=== PATIENT | male | born 1930 | race Caucasian/White ===

== ENCOUNTER 2019-11-09 22:10 | Emergency (ER) | payer OTHER, SELFPAY ==
[2019-11-09] MEDS ORDERED: LIDOCAINE 1% W/EPI 1:100,000 MDV 20 ML VIAL ONE (22:57)
[2019-11-09] MEDS ORDERED: TETANUS & DIPHTHERIA TOX,ADULT 0.5 ML VIAL ONE (23:50)
--- NOTE | 2019-11-09 23:52 | ER ---
Nurse's Notes [facility] Name: Elmer Manzano Age: 89 yrs Sex: Male : 1930 Arrival Date: 11/09/2019 Time: 22:12 Bed 8 Private MD: Diagnosis: left arm laceration;Fall Presentation: 11/09 22:20 Presenting complaint: Patient states: he got up out of bed and lost his balance causing aa1 him to fall and hit his L forearm. Skin tear noted. Denies any other injuries. Transition of care: patient was not received from another setting of care. Onset of symptoms was November 09, 2019. Risk Assessment: Do you want to hurt yourself or someone else? Patient reports no desire to harm self or others. Initial Sepsis Screen: Does the patient meet any 2 criteria? No. Patient's initial sepsis screen is negative. Does the patient have a suspected source of infection? No. Patient's initial sepsis screen is negative. Care prior to arrival: None. 22:20 Method Of Arrival: Ambulatory aa1 22:20 Acuity: AISLINN 4 aa1 Historical: - Allergies: 22:38 Feldene; aa1 - Home Meds: 22:38 metoprolol tartrate 100 mg Oral tab 1 tab once daily [Active]; ramipril 10 mg Oral cap aa1 1 cap once daily [Active]; amlodipine 10 mg tab 1 tab once daily [Active]; cholecalciferol (vitamin D3) 5,000 unit oral tab daily [Active]; Pentasa 4 gm Oral daily [Active]; Multaq 400 mg oral tab 1 tab 2 times per day [Active]; ranolazine oral oral [Active]; Eliquis 2.5 mg oral tab 1 tab 2 times per day [Active]; lovastatin 40 mg Oral tab 1 tab once daily [Active]; folic acid 1 mg Oral tab 1 tab once daily [Active]; Vitamin B-12 Oral [Active]; fentanyl 12 mcg/hr Topical pt72 1 patch every 72 hours [Active]; Remicade 100 mg intravenous solr every 8 wks [Active]; - PMHx: 22:38 Crohn's; Hypertension; Atrial Fib; aa1 - PSHx: 22:38 CABG; Heart stents; Appendectomy; Bowel resection; aa1 - Immunization history:: Last tetanus immunization: < 5 years ago. - Social history:: Smoking status: Patient/guardian denies using tobacco. - Ebola Screening: : No symptoms or risks identified at this time. Screenin:22 Abuse screen: Denies threats or abuse. Denies injuries from another. Nutritional aa1 screening: No deficits noted. Tuberculosis screening: No symptoms or risk factors identified. Fall Risk Fall in past 12 months (25 points). Assessment: 22:22 General: Appears in no apparent distress. comfortable, slender, well groomed, Behavior aa1 is calm, cooperative, appropriate for age. Pain: Denies pain. Neuro: Level of Consciousness is awake, alert, obeys commands, Oriented to person, place, time, situation, Moves all extremities. Full function Gait is steady, Speech is slurred. Neuro: Denies weakness dizziness. Cardiovascular: Denies chest pain, palpitations. Respiratory: Airway is patent Respiratory effort is even, unlabored, Respiratory pattern is regular, symmetrical. GI: No signs and/or symptoms were reported involving the gastrointestinal system. : No signs and/or symptoms were reported regarding the genitourinary system. EENT: No signs and/or symptoms were reported regarding the EENT system. Derm: Skin is intact, is thin, has skin tears on left forearm Skin is pink, warm \T\ dry. Musculoskeletal: Circulation, motion, and sensation intact. Capillary refill < 3 seconds. 23:20 Reassessment: Patient appears in no apparent distress at this time. Patient and/or aa1 family updated on plan of care and expected duration. Pain level reassessed. Patient is alert, oriented x 3, equal unlabored respirations, skin warm/dry/pink. ERP at bedside for lac repair. 23:59 Reassessment: Patient appears in no apparent distress at this time. Patient is alert, aa1 oriented x 3, equal unlabored respirations, skin warm/dry/pink. Discussed d/c \T\ f/u instructions with pt \T\ spouse; denies questions or concerns at this time. Ambulatory to lobby with steady gait. Vital Signs: 22:20 BP 125 / 55; Pulse 62; Resp 18; Temp 97.1; Pulse Ox 100% on R/A; Weight 65.77 kg; aa1 Height 5 ft. 11 in. (180.34 cm); Pain 0/10; 23:20 BP 117 / 45; Pulse 67; Resp 16; Pulse Ox 100% on R/A; Pain 0/10; aa1 22:20 Body Mass Index 20.22 (65.77 kg, 180.34 cm) aa1 ED Course: 22:12 Patient arrived in ED. cf2 22:20 Arm band placed on right wrist. Patient placed in an exam room, on a stretcher. aa1 22:22 Patient has correct armband on for positive identification. Bed in low position. Call aa1 light in reach. Pulse ox on. NIBP on. Warm blanket given. 22:28 Evette Beth RN is Primary Nurse. aa1 22:28 Sidney Mednoza MD is Attending Physician. aa1 22:31 Triage completed. aa1 23:20 Assist provider with laceration repair on back of left arm that was between 2.6 to 7.5 aa1 cm using sutures. Set up tray. Performed by Sidney Mendoza MD Dressed with 4X4s, Mary, nonadherent dressing Patient tolerated well. 23:59 Patient did not have IV access during this emergency room visit. aa1 Administered Medications: 23:54 Drug: Tetanus-Diphtheria Toxoid Adult 0.5 ml {Guest Services Lead: [employer]. Exp: aa1 11/21/2021. Lot #: [id number]. } Route: IM; Site: left deltoid; 23:59 Follow up: Response: No adverse reaction aa1 Outcome: 23:51 Discharge ordered by . ps1 23:59 Discharged to home ambulatory, with significant other. aa1 23:59 Condition: good 23:59 Discharge instructions given to patient, significant other, Instructed on discharge instructions, follow up and referral plans. medication usage, wound care, Demonstrated understanding of instructions, follow-up care, medications, wound care, Prescriptions given X 1. 0105 00:00 Patient left the ED. aa1 Signatures: Evette Beth RN RN aa1 Sidney Mendoza MD MD ps1 Virgen Ramos cf2 Corrections: (The following items were deleted from the chart) 00:30 00:29 Patient left the ED. aa1 aa1
--- NOTE | 2019-11-09 23:52 | EDPHYS ---
Physician Documentation [facility] Name: Elmer Manzano Age: 89 yrs Sex: Male : 1930 Arrival Date: 11/09/2019 Time: 22:12 Bed 8 Private MD: ED Physician Sidney Mendoza HPI: 11/09 23:42 This 89 yrs old Male presents to ER via Ambulatory with complaints of Fall ps1 Injury, Laceration To Arm. 23:44 Patient is on Eliquis. States that he got up and felt dizzy and lost his balance. He ps1 did not hit his head. He has a laceration of left arm and skin tear. Pain is controlled and rated as moderate. Tetanus is not UTD. 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 . Historical: - Allergies: 22:38 Feldene; aa1 - Home Meds: 22:38 metoprolol tartrate 100 mg Oral tab 1 tab once daily [Active]; ramipril 10 mg Oral cap aa1 1 cap once daily [Active]; amlodipine 10 mg tab 1 tab once daily [Active]; cholecalciferol (vitamin D3) 5,000 unit oral tab daily [Active]; Pentasa 4 gm Oral daily [Active]; Multaq 400 mg oral tab 1 tab 2 times per day [Active]; ranolazine oral oral [Active]; Eliquis 2.5 mg oral tab 1 tab 2 times per day [Active]; lovastatin 40 mg Oral tab 1 tab once daily [Active]; folic acid 1 mg Oral tab 1 tab once daily [Active]; Vitamin B-12 Oral [Active]; fentanyl 12 mcg/hr Topical pt72 1 patch every 72 hours [Active]; Remicade 100 mg intravenous solr every 8 wks [Active]; - PMHx: 22:38 Crohn's; Hypertension; Atrial Fib; aa1 - PSHx: 22:38 CABG; Heart stents; Appendectomy; Bowel resection; aa1 - Immunization history:: Last tetanus immunization: < 5 years ago. - Social history:: Smoking status: Patient/guardian denies using tobacco. - Ebola Screening: : No symptoms or risks identified at this time. ROS: 23:44 Constitutional: Negative for fever, chills, and weight loss, Eyes: Negative for injury, ps1 pain, redness, and discharge, Cardiovascular: Negative for chest pain, palpitations, and edema, Respiratory: Negative for shortness of breath, cough, wheezing, and pleuritic chest pain, Abdomen/GI: Negative for abdominal pain, nausea, vomiting, diarrhea, and constipation, Skin: Negative for injury, rash, and discoloration, Neuro: Negative for headache, weakness, numbness, tingling, and seizure. 23:44 MS/extremity: Positive for laceration, of the back of left arm. Exam: 23:44 Constitutional: This is a well developed, well nourished patient who is awake, alert, ps1 and in no acute distress. Head/Face: Normocephalic, atraumatic. Eyes: Pupils equal round and reactive to light, extra-ocular motions intact. Lids and lashes normal. Conjunctiva and sclera are non-icteric and not injected. Chest/axilla: Normal chest wall appearance and motion. Nontender with no deformity. No lesions are appreciated. Cardiovascular: Regular rate and rhythm. No gallops, murmurs, or rubs. Normal PMI, no JVD. No pulse deficits. Respiratory: Lungs have equal breath sounds bilaterally, clear to auscultation and percussion. No rales, rhonchi or wheezes noted. No increased work of breathing, no retractions or nasal flaring. Abdomen/GI: Soft, non-tender, with normal bowel sounds. No distension or tympany. No guarding or rebound. No evidence of tenderness throughout. Neuro: Awake and alert, GCS 15, oriented to person, place, time, and situation. Cranial nerves II-XII grossly intact. Sensory grossly intact. 23:44 Musculoskeletal/extremity: Extremities: grossly normal except: noted in the back of left arm: laceration, skin tear, There is no evidence of foreign body or deformity. Vital Signs: 22:20 BP 125 / 55; Pulse 62; Resp 18; Temp 97.1; Pulse Ox 100% on R/A; Weight 65.77 kg; aa1 Height 5 ft. 11 in. (180.34 cm); Pain 0/10; 23:20 BP 117 / 45; Pulse 67; Resp 16; Pulse Ox 100% on R/A; Pain 0/10; aa1 22:20 Body Mass Index 20.22 (65.77 kg, 180.34 cm) aa1 Laceration: 23:44 Wound Repair of 12cm ( 4.7in ) subcutaneous laceration to back of left arm. Distal ps1 neuro/vascular/tendon intact. Anesthesia: Local anesthetic administered with 10 mls of 1% lidocaine w/ Epi. Wound prep: Moderate cleansing with hibiclenz by me. Skin closed with 12 5-0 Prolene using simple sutures and sterile technique. Dressed with Bacitracin, Kerlix. Patient tolerated well. MDM: 23:49 Data reviewed: vital signs, nurses notes, lab test result(s), and as a result, I will ps1 discharge patient. Counseling: I had a detailed discussion with the patient and/or guardian regarding: the historical points, exam findings, and any diagnostic results supporting the discharge/admit diagnosis, the need for outpatient follow up, to return to the emergency department if symptoms worsen or persist or if there are any questions or concerns that arise at home. Refusal of service: The patient/guardian displays adequate decision making capability and despite a detailed discussion of alternatives, benefits, risks, and consequences refuses: CT Scan. Special discussion: Based on the patient's history, exam and DX evaluation, there is no indication for emergent intervention or inpatient TX. It is understood by the patient/guardian that if the SXs persist or worsen they need to return immediately for re-evaluation. 23:51 Patient medically screened. 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 Exp: aa1 11/21/2021. Lot #: [id number]. } Route: IM; Site: left deltoid; 23:59 Follow up: Response: No adverse reaction aa1 Disposition: 11/09/19 23:51 Discharged to Home. Impression: left arm laceration, Fall. - Condition is Stable. - Discharge Instructions: Laceration Care, Adult, [id number]. - Prescriptions for Tramadol 50 mg Oral Tablet - take 1 tablet by ORAL route every 8 hours as needed; 12 tablet. - Medication Reconciliation Form, Thank You Letter, Antibiotic Education, Prescription Opioid Use form. - Follow up: Private Physician; When: 7 - 10 days; Reason: Recheck today's complaints, Continuance of care, Staple/Suture removal, Re-evaluation by your physician. Follow up: Emergency Department; When: As needed; Reason: Worsening of condition. - Problem is new. - Symptoms have improved. Signatures: Dispatcher [employer] [facility] Evette Beth RN RN aa1 Sidney Mendoza MD MD ps1 Corrections: (The following items were deleted from the chart) 23:51 23:51 11/09/2019 23:51 Discharged to Home. Impression: left arm laceration; Fall. ps1 Condition is Stable. Forms are Medication Reconciliation Form, Thank You Letter, Antibiotic Education, Prescription Opioid Use. Follow up: Private Physician; When: 7 - 10 days; Reason: Recheck today's complaints, Continuance of care, Staple/Suture removal, Re-evaluation by your physician. Follow up: Emergency Department; When: As needed; Reason: Worsening of condition. ps1 11/10 00:11 11/09 23:43 Head Brain Wo Cont+CT.RAD.BRZ ordered. [facility] EDTN 11/10 00:29 11/09 23:51 11/09/2019 23:51 Discharged to Home. Impression: left arm laceration; Fall. aa1 Condition is Stable. Forms are Medication Reconciliation Form, Thank You Letter, Antibiotic Education, Prescription Opioid Use. Follow up: Private Physician; When: 7 - 10 days; Reason: Recheck today's complaints, Continuance of care, Staple/Suture removal, Re-evaluation by your physician. Follow up: Emergency Department; When: As needed; Reason: Worsening of condition. Problem is new. Symptoms have improved. ps1
[2019-11-10 01:28] VITALS: BP 117/45; TEMP 97.1; O2SAT 100
== END 2019-11-10 00:29 | disposition home or self-care (01) ==
LOC: ER 22:10
PROC: 0JQF0ZZ Repair Left Upper Arm Subcutaneous Tissue and Fascia, Open Approach (ICD-10-PCS; principal; 2019-11-10)
DX: S41.112A Laceration without foreign body of left upper arm, initial encounter (principal); W19.XXXA Unspecified fall, initial encounter; Y93.89 Activity, other specified; Y92.9 Unspecified place or not applicable; Z23 Encounter for immunization; Z79.01 Long term (current) use of anticoagulants; Z88.8 Allergy status to other drugs, medicaments and biological substances; Z95.1 Presence of aortocoronary bypass graft; I10 Essential (primary) hypertension; I48.91 Unspecified atrial fibrillation
CPT/HCPCS: 90471; 90714; 99284

== ENCOUNTER 2020-08-08 13:56 | Emergency (ER) | payer SELFPAY ==
--- NOTE | 2020-08-08 14:35 | RAD REPORT ---
EXAM DESCRIPTION: CT - Head C Spine Mpr Wo Con - 08/08/2020 2:17 pm CLINICAL HISTORY: Head and neck injury status post fall. Head and neck pain COMPARISON: None. TECHNIQUE: Computed axial tomography of the head and cervical spine was obtained. Sagittal and coronal reconstruction was performed. All CT scans are performed using dose optimization technique as appropriate and may include automated exposure control or mA/KV adjustment according to patient size. FINDINGS: An intracranial bleed is not seen. The ventricles are normal in caliber. An extra-axial fl uid collection is not noted.Fluid within the visualized sinuses and mastoids is not seen. Calcificati ons within the parotid and vertebral arteries A cervical fracture is not visualized. No dislocation is noted. Spondylosis involves the cervical spi ne 11 millimeter soft tissue structure abuts the left aspect of the epiglottis IMPRESSION: No acute intracranial abnormality is seen. A cervical fracture is not visualized. If the patient continues to have symptoms to suggest intracra nial /spinal cord pathology then MRI would be recommended 11 millimeter soft tissue structure abuts the left aspect of the epiglottis. Direct visualization rec ommended
[2020-08-08] MEDS ORDERED: LIDOCAINE 1% MPF 5 ML VIAL ONE (14:58)
--- NOTE | 2020-08-08 15:18 | EDPHYS ---
Physician Documentation [facility] Name: Elmer Manzano Age: 89 yrs Sex: Male : 1930 Arrival Date: 08/08/2020 Time: 13:57 Bed 8 Private MD: ED Physician Phill Gutierrez HPI: 08/08 14:04 This 89 yrs old Male presents to ER via Unassigned with complaints of Fall pm1 Injury, Head Injury-Adult, Laceration To Head. 14:04 Details of fall: The patient fell from an upright position, while walking. Onset: The pm1 symptoms/episode began/occurred just prior to arrival. Associated injuries: The patient sustained injury to the head, laceration, of the top of head. Severity of symptoms: in the emergency department the symptoms have improved, bleeding stopped. The patient has not experienced similar symptoms in the past. Patient stepping from slab to the ground, difference in height about 3-4 inches. Lost his balance and fell forward hitting his head on the green garbage can. No neck pain or LOC. - N/V/D. Pain to the top of his head at location of laceration. Takes eliquis for afib history. Historical: - Allergies: 14:18 Feldene; ca1 14:18 Zithromax Z-Skip; ca1 - PMHx: 14:18 Atrial Fib; Crohn's; Hypertension; ca1 - PSHx: 14:18 CABG; Heart stents; Appendectomy; Bowel resection; ca1 - Immunization history:: Adult Immunizations up to date, Last tetanus immunization: < 5 years ago. - Social history:: Smoking status: Patient denies any tobacco usage or history of. - Immunization history: Last tetanus immunization: - up to date. ROS: 14:04 Constitutional: Negative for fever, chills, and weight loss, Neck: Negative for injury, pm1 pain, and swelling, Cardiovascular: Negative for chest pain, palpitations, and edema, Respiratory: Negative for shortness of breath, cough, wheezing, and pleuritic chest pain, Abdomen/GI: Negative for abdominal pain, nausea, vomiting, diarrhea, and constipation, Back: Negative for injury and pain, MS/Extremity: Negative for injury and deformity. 14:04 Skin: Positive for laceration(s), of the top of head. 14:04 Neuro: Positive for headache, Negative for loss of consciousness, numbness, tingling, weakness. Exam: 14:06 Constitutional: This is a well developed, well nourished patient who is awake, alert, pm1 and in no acute distress. 14:06 Neck: Trachea midline, no thyromegaly or masses palpated, and no cervical lymphadenopathy. Supple, full range of motion without nuchal rigidity, or vertebral point tenderness. No Meningismus. 14:06 Skin: Warm, dry with normal turgor. Normal color with no rashes, no lesions, and no evidence of cellulitis. MS/ Extremity: Pulses equal, no cyanosis. Neurovascular intact. Full, normal range of motion. 14:06 Head/face: Noted is no obvious of injury or deformity except a laceration(s), that is superficial, 5 cm(s), of the top of head. 14:06 Cardiovascular: Exam negative for acute changes, Rate: normal, Rhythm: regular, Pulses: no pulse deficits are appreciated. 14:06 Respiratory: Exam negative for acute changes, respiratory distress, shortness of breath. 14:06 Neuro: Orientation: is normal, Motor: is normal, moves all fours. Vital Signs: 14:00 BP 181 / 75; Pulse 66; Resp 16 S; Temp 97.9(TE); Pulse Ox 100% on R/A; Weight 63.5 kg ca1 (R); Height 6 ft. 0 in. (182.88 cm) (R); Pain 6/10; 15:00 BP 178 / 77; Pulse 67; Resp 17; Pulse Ox 99% on R/A; rb1 14:00 Body Mass Index 18.99 (63.50 kg, 182.88 cm) ca1 Kedar Coma Score: 14:03 Eye Response: spontaneous(4). Verbal Response: oriented(5). Motor Response: obeys rb1 commands(6). Total: 15. 15:00 Eye Response: spontaneous(4). Verbal Response: oriented(5). Motor Response: obeys rb1 commands(6). Total: 15. Trauma Score (Adult): 14:03 Eye Response: spontaneous(1); Verbal Response: oriented(1); Motor Response: obeys rb1 commands(2); Systolic BP: > 89 mm Hg(4); Respiratory Rate: 10 to 29 per min(4); Kedar Score: 15; Trauma Score: 12 14:30 Eye Response: spontaneous(1); Verbal Response: oriented(1); Motor Response: obeys rb1 commands(2); Systolic BP: > 89 mm Hg(4); Respiratory Rate: 10 to 29 per min(4); [place] Score: 15; Trauma Score: 12 15:00 Eye Response: spontaneous(1); Verbal Response: oriented(1); Motor Response: obeys rb1 commands(2); Systolic BP: > 89 mm Hg(4); Respiratory Rate: 10 to 29 per min(4); [place] Score: 15; Trauma Score: 12 Laceration: 15:15 Wound Repair of 5cm ( 2.0in ) subcutaneous laceration to top of head. Irregularly pm1 shaped.. Distal neuro/vascular/tendon intact. Anesthesia: Local anesthetic administered with 4 mls of 1% lidocaine. Wound prep: Extensive cleansing with hibiclenz by me, Wound irrigation with saline by me, Wound explored extensively, Copious irrigation. Skin closed with 10 4-0 Prolene using simple sutures and sterile technique. Dressed with Neosporin, 4x4's, Kerlix. Patient tolerated well. MDM: 14:00 Patient medically screened. pm1 15:15 Data reviewed: vital signs. Data interpreted: Pulse oximetry: on room air is 100 %. pm1 Interpretation: normal. Counseling: I had a detailed discussion with the patient and/or guardian regarding: the historical points, exam findings, and any diagnostic results supporting the discharge/admit diagnosis, lab results, the need for outpatient follow up, to return to the emergency department if symptoms worsen or persist or if there are any questions or concerns that arise at home. 08/08 14:03 Order name: CT Head C Spine; Complete Time: 14:39 pm1 Administered Medications: 16:03 Not Given (Patient Refused): Tetanus-Diphtheria Toxoid Adult 0.5 ml IM once [id number] Disposition: 16:07 Co-signature as Attending Physician, Phill Gutierrez MD I agree with the assessment and kdr plan of care. Disposition: 08/08/20 15:17 Discharged to Home. Impression: Laceration without foreign body of scalp, Fall on same level, unspecified. - Condition is Stable. - Discharge Instructions: Head Injury, Adult, Fall Prevention in the Home, Stitches, Adam, or Adhesive Wound Closure. - Medication Reconciliation Form, Thank You Letter, Antibiotic Education, Prescription Opioid Use form. - Follow up: Emergency Department; When: As needed; Reason: Worsening of condition. Follow up: Private Physician; When: 10 - 14 days; Reason: Recheck today's complaints, Continuance of care, Staple/Suture removal, Re-evaluation by your physician. - Problem is new. - Symptoms have improved. Signatures: Dispatcher [employer] EDMS Phill Gutierrez MD MD [facility] Sarah Bello RN RN [facility] Josué Moses NP WOOD POLE TREATER pm1 Carole Turner RN RN [facility] Dana Reyes RN RN Frandy Roblero RN jl7 Corrections: (The following items were deleted from the chart) 15:18 15:17 08/08/2020 15:17 Discharged to Home. Impression: Laceration without foreign body pm1 of scalpFall on same level, unspecified. Condition is Stable. Forms are Medication Reconciliation Form, Thank You Letter, Antibiotic Education, Prescription Opioid Use. Follow up: Emergency Department; When: As needed; Reason: Worsening of condition. Follow up: Private Physician; When: 2 - 3 days; Reason: Recheck today's complaints, Continuance of care, Re-evaluation by your physician. Problem is new. Symptoms have improved. pm1 16:06 15:18 08/08/2020 15:17 Discharged to Home. Impression: Laceration without foreign body ah of scalpFall on same level, unspecified. Condition is Stable. Discharge Instructions: Head Injury, Adult, Fall Prevention in the Home, Stitches, Benson, or Adhesive Wound Closure. Forms are Medication Reconciliation Form, Thank You Letter, Antibiotic Education, Prescription Opioid Use. Follow up: Emergency Department; When: As needed; Reason: Worsening of condition. Follow up: Private Physician; When: 10 - 14 days; Reason: Recheck today's complaints, Continuance of care, Staple/Suture removal, Re-evaluation by your physician. Problem is new. Symptoms have improved. pm1
--- NOTE | 2020-08-08 15:18 | ER ---
Nurse's Notes 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 Lac on top of head, 4-inch. Bleeding controlled. Denies LOC. Pt on Eilquis for A-fib. Coronavirus screen: Client denies travel out of the [place] in the last 14 days. At this time, the client does not indicate any symptoms associated with coronavirus-19. Ebola Screen: Patient negative for fever greater than or equal to 101.5 degrees Fahrenheit, and additional compatible Ebola Virus Disease symptoms Patient denies exposure to infectious person. Patient denies travel to an Ebola-affected area in the 21 days before illness onset. No symptoms or risks identified at this time. Initial Sepsis Screen: Does the patient meet any 2 criteria? No. Patient's initial sepsis screen is negative. Does the patient have a suspected source of infection? No. Patient's initial sepsis screen is negative. Risk Assessment: Do you want to hurt yourself or someone else? Patient reports no desire to harm self or others. Onset of symptoms was August 08, 2020. Onset of symptoms was August 08, 2020. 14:00 Acuity: AISLINN 2 ca1 14:03 Care prior to arrival: None. Mechanism of Injury: Fall from standing position. Trauma rb1 event details: Injury occurred in the [facility], Injury occurred: at home. Injury occurred: August 08, 2020 Injury occurred at: 13:30. Trauma Activation: Physician: ED Physician; Name: Brenda; Notified At: 14:00; Arrived At: 14:00 Physician: General Surgeon; Name: ; Notified At: 14:00; Arrived At: Physician: Radiology; Name: Dora; Notified At: 14:00; Arrived At: 14:05 Physician: Respiratory; Name: ; Notified At: 14:00; Arrived At: Physician: Lab; Name: ; Notified At: 14:00; Arrived At: Historical: - Allergies: 14:18 Feldene; ca1 14:18 Zithromax Z-Skip; ca1 - PMHx: 14:18 Atrial Fib; Crohn's; Hypertension; ca1 - PSHx: 14:18 CABG; Heart stents; Appendectomy; Bowel resection; ca1 - Immunization history:: Adult Immunizations up to date, Last tetanus immunization: < 5 years ago. - Social history:: Smoking status: Patient denies any tobacco usage or history of. - Immunization history: Last tetanus immunization: - up to date. Screenin:03 Abuse screen: Denies threats or abuse. Tuberculosis screening: No symptoms or risk rb1 factors identified. 14:03 Nutritional screening: No deficits noted. Fall Risk Fall in past 12 months (25 points). rb1 No secondary diagnosis (0 pts). No IV (0 pts). Ambulatory Aid- None/Bed Rest/Nurse Assist (0 pts). Gait- Normal/Bed Rest/Wheelchair (0 pts) Mental Status- Oriented to own ability (0 pts). Total Cyr Fall Scale indicates Low Risk Score (25-44 pts). Fall prevention measures have been instituted. Side Rails Up X 2 Placed close to Nursing Station 1:1 attendant Assigned to Pt. Frequent Obs/Assesments occuring As available Patient and Family Educated on Fall Prevention Program and strategies. Primary Survey: 14:03 NO uncontrolled hemorrhage observed. A: The patient is alert. Breathing/Chest: rb1 Respiratory pattern: regular, Respiratory effort: spontaneous, unlabored, Chest inspection: symmetrical rise and fall of the chest. Circulation: Skin color: pink. Disability Alert. Exposure/Environment: There is no evidence of uncontrolled external bleeding. 14:30 Reassessment Airway Airway Patent Breathing/Chest Respiratory pattern Regular rb1 Respiratory effort Spontaneous Unlabored Circulation Color [place] Disability Alert. Secondary Survey: 14:03 HEENT: Head Other Laceration noted to the top of head. Gastrointestinal: No deficits rb1 noted. : No deficits noted. Musculoskeletal: Range of motion: intact in all extremities. Assessment: 14:03 General: Appears in no apparent distress. comfortable, Behavior is calm, cooperative. rb1 Neuro: Level of Consciousness is awake, alert, obeys commands, Oriented to person, place, time, situation. Cardiovascular: Patient's skin is warm and dry. Respiratory: Airway is patent Respiratory effort is even, unlabored, Respiratory pattern is regular, symmetrical. GI: No signs and/or symptoms were reported involving the gastrointestinal system. : No signs and/or symptoms were reported regarding the genitourinary system. Derm: Wound noted top of head Wound is Approximate 4 inch laceration on top of his head, bleeding controlled. Musculoskeletal: Range of motion: intact in all extremities. 15:00 Reassessment: Patient appears in no apparent distress at this time. Patient and/or rb1 family updated on plan of care and expected duration. Pain level reassessed. Patient is alert, oriented x 3, equal unlabored respirations, skin warm/dry/pink. 15:33 Reassessment: Patient appears in no apparent distress at this time. No changes from rb1 previously documented assessment. at the bedside. Vital Signs: 14:00 BP 181 / 75; Pulse 66; Resp 16 S; Temp 97.9(TE); Pulse Ox 100% on R/A; Weight 63.5 kg ca1 (R); Height 6 ft. 0 in. (182.88 cm) (R); Pain 6/10; 15:00 BP 178 / 77; Pulse 67; Resp 17; Pulse Ox 99% on R/A; rb1 14:00 Body Mass Index 18.99 (63.50 kg, 182.88 cm) ca1 Kedar Coma Score: 14:03 Eye Response: spontaneous(4). Verbal Response: oriented(5). Motor Response: obeys rb1 commands(6). Total: 15. 15:00 Eye Response: spontaneous(4). Verbal Response: oriented(5). Motor Response: obeys rb1 commands(6). Total: 15. Trauma Score (Adult): 14:03 Eye Response: spontaneous(1); Verbal Response: oriented(1); Motor Response: obeys rb1 commands(2); Systolic BP: > 89 mm Hg(4); Respiratory Rate: 10 to 29 per min(4); Kdear Score: 15; Trauma Score: 12 14:30 Eye Response: spontaneous(1); Verbal Response: oriented(1); Motor Response: obeys rb1 commands(2); Systolic BP: > 89 mm Hg(4); Respiratory Rate: 10 to 29 per min(4); Auburn Score: 15; Trauma Score: 12 15:00 Eye Response: spontaneous(1); Verbal Response: oriented(1); Motor Response: obeys rb1 commands(2); Systolic BP: > 89 mm Hg(4); Respiratory Rate: 10 to 29 per min(4); Kedar Score: 15; Trauma Score: 12 ED Course: 13:57 Patient arrived in ED. ag5 14:00 Josué Moses NP is PHCP. pm1 14:00 Phill Gutierrez MD is Attending Physician. pm1 14:03 Patient has correct armband on for positive identification. Bed in low position. Call rb1 light in reach. Side rails up X 1. 14:03 Patient maintains SpO2 saturation greater than 95% on room air. rb1 14:03 Thermoregulation: warm blanket given to patient. rb1 14:10 Sarah Bello, RN is Primary Nurse. rb1 14:16 CT Head C Spine In Process Unspecified. EDMS 14:17 Triage completed. ca1 14:18 Arm band placed on right wrist. ca1 16:06 No provider procedures requiring assistance completed. Patient did not have IV access rb1 during this emergency room visit. Administered Medications: 16:03 Not Given (Patient Refused): Tetanus-Diphtheria Toxoid Adult 0.5 ml IM once jl7 Outcome: 15:17 Discharge ordered by . pm1 16:06 Patient left the ED. 16:06 Discharged to home ambulatory, with family. rb1 16:06 Condition: stable 16:06 Discharge instructions given to pt. left before signing discharge papers. I took another pt. to ICU and when I returned this pt. had already left. Signatures: Dispatcher [employer] EDTX Sarah Bello, RN RN rb1 Josué Moses NP FARM MANAGER pm1 Carole Turner RN RN [facility] Lauren Mcleod ag5 Dana Reyes RN RN Frandy Lopez RN jl7 Corrections: (The following items were deleted from the chart) 14:17 14:00 Method Of Arrival: Ambulatory [facility] ca1
[2020-08-08 16:13] VITALS: BP 181/75; TEMP 97.9; O2SAT 100
--- OUTSIDE RECORDS SUMMARY | 2020-08-12 23:18 | XMS REPORT | Clinical Summary ---
:[address] 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 tablet mesalamine (PENTASA) Take 1,333 mg by 0 Active 250 mg CR capsule mouth 3 (three) times daily 3 tabs in AM, 3 tabs in afternoon, and 2 tabs in PM. ramipril (ALTACE) 10 Take 10 mg by mouth 0 Active MG capsule daily. apixaban (ELIQUIS) 5 Take 2.5 mg by mouth 0 Active mg Tab tablet 2 (two) times daily . cholecalciferol, Take 5,000 Units by 0 Active vitamin D3, 5,000 mouth daily. unit Tab INFLIXIMAB (REMICADE Inject intravenously 0 Active IV) once every [address] 0.4 mg under 0 Active (NITROSTAT) 0.4 MG the tongue every 5 SL tablet (five) minutes as needed for Chest pain Put 1 pill under tongue every 5min as needed for chest pain.No more than 3 doses in 15min.Call 911 if pain is unrelieved 5min after 1st dose . TURM/GING/WALE/YUC/WI Take by mouth daily 0 Active L/ALETHEA/HOR . (TUMERSAID ORAL) cranberry fruit Take by mouth daily 0 Active concentrate . (CRANBERRY) 450 mg Tab cyanocobalamin Inject 1,000 mcg 0 Active (VITAMIN B-12) 1,000 intramuscularly mcg/mL injection every 30 (thirty) days . clopidogrel (PLAVIX) Take 75 mg by mouth 0 Active 75 mg tablet daily. dronedarone (MULTAQ) Take 0.5 tablets 0 01/16/2018 Active 400 mg tablet (200 mg total) by mouth 2 (two) times daily with breakfast and dinner. amLODIPine (NORVASC) Take 1 tablet (5 mg 30 tablet 2 8 5 MG tablet total) by mouth 9 daily. 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 Angina pectoris 07/02/2016 Symptomatic bradycardia 02/26/2015 Syncope 01/19/2015 Ventricular tachycardia 01/19/2015 New onset atrial fibrillation 06/25/2013 Hypertension CAD (coronary artery disease) Overview: ACB X 3 Atrial fibrillation Family History Medical History Relation Name Comments defects Daughter brain damage Heart disease Father of heart di sease Hypertension Father Arthritis Mother Hypertension Mother Vision loss Mother macular degenera tion Drug abuse Other grandson Learning disabilities Other grandson adhd COPD Paternal Aunt from copd Heart disease Paternal Aunt Stroke Paternal Grandfather Stroke Paternal Grandmother Cancer Paternal Uncle Heart disease Paternal Uncle Relation Name Status Comments Daughter Father Mother Other grandson Alive Paternal Aunt Paternal Grandfather Paternal Grandmother Paternal Uncle Social History Tobacco Use Types Packs/Day Years Used Date Never Smoker Smokeless Tobacco: Never Used Comments: pt discharged soon after admis johnson,unable to obtain history Alcohol Use Drinks/Week oz/Week Comments Yes 7 Glasses of wine 4.2 Glass of wine a day. Sex Assigned at Date Recorded Not on file Job Start Date Occupation Industry Not on file Not on file Not on file Travel History Travel Start Travel End No recent travel history available. 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 Device Shelf Model / Identifier Expiration Serial / Lot Date Angio-Seal Vip Graft/Pat [employer] [id number] / Implanted: Qty: 1 on 07/04/2016 by Logan San MD [facility] / [id number] Prom[employer] Premier Stents[employer] 017 [id number] / Implanted: Qty: 1 on 07/04/2016 by Logan San MD [facility] / [id number] - 52cm [employer] 12/02/2016 5076 - 52CM / Implanted: Qty: 1 on 02/26/2015 [id number] / [id number] - 45cm [employer] 11/26/2016 5076 - 45CM / Implanted: Qty: 1 on 02/26/2015 [id number] / Advisa Dr Lyles Surearden/[id number] [employer] [id number] / Implanted: Qty: 1 on 02/26/2015 [id number] / Procedures Procedure Name Priority Date/Time Associated Diagnosis Comme nts ECHOCARDIOGRAM REPORT - 02/03/2020 9:51 AM SCAN CDT after 08/12/2019 Results ECHOCARDIOGRAM REPORT - SCAN (02/03/2020 9:51 AM CDT) Narrative Performed At This result has an attachment that is no t available. after 08/12/2019 Insurance Payer Benefit Plan / Group Subscriber ID Type Phone A ddress MEDICARE MEDICARE A B xxxxxxxxxxx Medicare [facility] INDEMNITY xxxxxxxxx CARE COMMERCIAL Advance Directives Patient has advance care planning documents, and code status on file. For more information, please contact:[address] [phone] Code Status Date Activated Date Inactivated Comments Full Code 09/18/2018 4:53 PM This code status was determined by: Patient Full Code 09/14/2018 5:18 PM 09/18/2018 1:12 PM This code status was determined by: Patient Full Code 09/14/2018 12:13 PM 09/14/2018 12:56 PM This code status was determined by: Patient Full Code 09/14/2018 11:28 AM 09/14/2018 12:13 PM This code status was determined by: Patient Full Code 01/14/2018 8:09 AM 01/16/2018 4:30 PM This code status was determined by: Patient
--- OUTSIDE RECORDS SUMMARY | 2020-08-12 23:18 | XMS REPORT | Clinical Summary ---
:1930 Author Organization [facility] Address [address] [place] [address] Care Team Providers Name Role Phone Areli Cates MD Primary Care Provider Allergies Active Allergy Reactions Severity Noted Date Comments Azithromycin Anxiety Low 07/24/2016 Hydrocodone-Acetaminophen Anxiety Low 07/24/2016 Medications Medication Sig Dispensed Refills Start Date End Date Status amLODIPine (NORVASC) 10 Take 10 mg by 0 Active MG tablet mouth 2 (two) times a day. apixaban (ELIQUIS) 5 mg Take 2.5 mg by 0 Active tablet mouth. cholecalciferol, Take 5,000 Units 0 Active vitamin D3, 5,000 unit by mouth. tablet inFLIXimab (REMICADE) Infuse into a 0 Active 100 mg injection venous catheter. metoprolol tartrate Take 50 mg by 0 Active (LOPRESSOR) 50 MG mouth. tablet ramipril (ALTACE) 10 MG Take 10 mg by 0 Active capsule mouth. ranolazine (RANEXA) 500 Take 1,000 mg by 0 Active MG 12 hr ER tablet mouth. dronedarone (MULTAQ) Take 400 mg by 0 Active 400 mg tablet mouth. mesalamine (PENTASA) Take 1,000 mg by 0 Active 250 mg CR capsule mouth. folic acid (FOLVITE) 1 Take 1 mg by 0 Active MG tablet mouth daily. vitamin B complex (B Take by mouth. 0 Active COMPLEX-VITAMIN B12 ORAL) lovastatin (MEVACOR) 40 Take 40 mg by 0 Active MG tablet mouth nightly. clopidogrel (PLAVIX) 75 Take 75 mg by 0 Active mg tablet mouth daily. Active Problems Problem Noted Date Foot sprain, left, initial encounter 11/16/2018 Surgical History Surgery Date Site/Laterality Comments COLON SURGERY TONSILLECTOMY KNEE SURGERY Left EYE SURGERY APPENDECTOMY CARDIAC SURGERY "maybe total of 7, last one in August 2016" JOINT REPLACEMENT STENT CARDIAC PACEMAKER PLACEMENT Medical History Medical History Date Comments Atrial fibrillation (HCC) Hypertension Crohn disease (HCC) Coronary artery disease Neuropathy Hyperlipidemia Arthritis Heart disease Family History Medical History Relation Name Comments Heart disease Father Hypertension Mother Relation Name Status Comments Father Mother Social History Tobacco Use Types Packs/Day Years Used Date Never Smoker Smokeless Tobacco: Never Used Alcohol Use Drinks/Week oz/Week Comments No 1 Cans of beer 1.0 Sex Assigned at Date Recorded Not on file Last Filed Vital Signs Not on file Plan of Treatment Health Maintenance Due Date Last Done Comments SHINGLES VACCINES (#1) 1980 INFLUENZA VACCINE 06/06/2020 65+ PNEUMOCOCCAL VACCINE Completed 09/16/2015 Results Not on fileafter 08/12/2019 Insurance Payer Benefit Plan / Subscriber ID Effective Dates Phone Addre ss Type Group MEDICARE MEDICARE PART A [id number] 1995-[place] Medicare AND B t [facility] [id number] 2015-Present Indemnity INDEMNITY Advance Directives For more information, please contact: [phone] Type Date Recorded 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
--- OUTSIDE RECORDS SUMMARY | 2020-08-12 23:19 | XMS REPORT | Continuity of Care Document ---
:1930 Author Organization [facility] t Address [address] [place] [address] Care Team Providers Name Role Phone Areli Cates MD Primary Care Physician Patricia ARIAS CIgnacio Attending Clinician JONA BLANCO Attending Clinician Unavailable TRISTIAN ARZATE Attending Clinician Unavailable ARTURO Attending Clinician Unavailable ELMIRA RAYMUNDO Attending Clinician Unavailable AZIZA MA Admitting Clinician Unavailable TRISTIAN ARZATE Admitting Clinician Unavailable PARESH EVANS Admitting Clinician Unavailable ELMIRA RAYMUNDO Admitting Clinician Unavailable Problems Condition Condition Condition Status Onset Resolution Last Treating Co mments Source Name Details Category Date Date Treatment Clinician Date Foot Foot Disease Active [place] sprain, sprain, 1-11 [facility] left, left, 00:00: st initial initial 00 encounter encounter Chest Chest Disease Active 2017-[address] [facility] pain, pain, 1-13 [facility] unspecifie unspecifie 00:00: Me dical d type d type 00 Center Atrial Atrial Disease Active 2017-[address] [facility] flutter flutter 1-09 [facility] Medical 00 Center Other Other Disease Active [facility] chest pain chest pain 3-11 [facility] - 00:00: Medical 00 Center Hx of CABG Hx of CABG Disease Active [facility] 8[facility]30 [facility] Medical 00 Center 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 8-27 [facility] - 00:00: Medical 00 [place] Symptomati Symptomati Disease Active [facility] c c 4-23 [facility] - bradycardi bradycardi 00:00: Me dical a a 00 Center Syncope Syncope Disease Active [facility] 3-16 [facility] - 00:[facility]: Medical 00 Center 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 St fibrillati fibrillati [facility] [facility] - on [facility] Allergies, Adverse Reactions, Alerts Allergy Allergy Status Severity Reaction(s) Onset Inactive Treating Comm ents Source Name Type Date Date Clinician Azithrom Propensi Active Anxiety [place] ycin ty to 07-24 [facility] adverse 00:00: st reaction 00 s to drug Hydrocod Propensi Active Anxiety [place] one-Acet ty to 07-24 [facility] aminophe adverse 00:00: st n reaction 00 s to drug Piroxica Propensi Active Rash When goes [facility] m ty to 6-10 [place] [facility] - adverse 00:00: gets rash Medica l reaction 00 Center s Hydrocod Propensi Active Other (See Nervous, [facility] one-Acet ty to Comments) 6-10 "freak [facility] - aminophe adverse 00:00: out" Medical n reaction 00 Center s Azithrom Propensi Active Other (See Severe [facility] ycin ty to Comments) 6-10 digestive Luke s - adverse 00:00: pain Medical reaction 00 Center s Family History Family Member Diagnosis Comments Start Date Stop Date Source Natural father Heart disease [place] Natural father Heart disease [facility] Natural father Hypertension [facility] Natural mother Hypertension [facility] Natural mother Arthritis [facility] Natural mother Hypertension [facility] Natural mother Vision loss [facility] Natural daughter defects [facility] Other Drug abuse [facility] Other Learning [facility] disabilities Medical Cent er Paternal aunt COPD [facility] Paternal aunt Heart disease [facility] P[facility] r Paternal uncle Cancer [facility] Paternal uncle Heart disease [facility] Social History Social Habit Start Date Stop Date Quantity Comments Source Sex Assigned At [facility] Tobacco use and 2019-04-25 2019-04-25 Never used [facility] ethodist exposure 00:00:00 00:00:00 Alcohol intake 2019-04-25 2019-04-25 Current [facility] thodist 00:00:00 00:00:00 non-drinker of alcohol (finding) Alcohol Comment 2018-09-18 2018-09-18 Glass of wine a [facility] - 00:00:00 00:00:00 day. [facility] Tobacco Comment 2013-06-25 2013-06-[address] [facility] - 00:00:00 00:00:00 after [facility] admission,unable to obtain history Smoking Status Start Date Stop Date Source Never smoker [facility] Medications Ordered Filled Start Stop Current Ordering Indication Dosage Frequency Signature Comments Components Source Medication Medication Date Date Medication? Clinician (SIG) Name Name amLODIPine Yes 10mg Q.5D Take 10 mg [place] (NORVASC) 1-11 by mouth 2 Meth kendrick 10 MG 14:52: (two) st tablet 21 times a day. amLODIPine 2017-11 2019- No 5mg QD Take [address] (NORVASC) 5 1-10 11-10 tablet (5 [facility] - MG tablet 00:00: 23:59 mg total) Me dical 00 :00 by mouth Center daily. TURM/GING/B 2017-11 Yes QD Take by [facility] OS/YUC/ANGELIA/ 11-14 mouth [facility] - ALETHEA/HOR 13:19: daily . Medica l (TUMERSAID 28 [place] ORAL) mesalamine 2017-11 Yes 1333mg [id number] Take 1,[address] [facility] (PENTASA) 11-14 [id number] mg by Lisa es - 250 mg CR 13:18: 3D mouth 3 Medic al capsule 38 (three) Center times daily 3 tabs in AM, 3 tabs in afternoon, and 2 tabs in PM. cranberry 2017-11 Yes QD Take by [facility] t fruit 11-14 mouth [facility] - concentrate 13:18: daily . Med ical (CRANBERRY) 38 Center 450 mg Tab cyanocobala 2017-11 Yes 1000ug Inject [facility] min 1-09 1,000 mcg [facility] - (VITAMIN 13:18: intramuscu Med ical B-12) 1,000 38 larly Center mcg/mL every 30 injection (thirty) days . apixaban Yes 2.5mg Take 2.5 [place] (ELIQUIS) 5 5-31 mg by [facility] mg tablet 15:24: mouth. st 57 cholecalcif 2018 Yes 5000U Take 5,000 [place], 5-31 Units by [facility] vitamin D3, 15:24: mouth. st 5,000 unit 57 tablet inFLIXimab 0 Yes Infuse [place] (REMICADE) 5 into a [facility] 100 mg 15:24: venous st injection 57 catheter. metoprolol Yes 50mg Take 50 mg [place] tartrate 5 by mouth. Method i (LOPRESSOR) 15:24: st 50 MG 57 tablet ramipril 0 Yes 10mg Take 10 mg Cristóbal ston (ALTACE) 10 04-05 by mouth. Met hodi MG capsule 15:24: st 57 ranolazine 2018-0 Yes 1000mg Take 1,000 [place] (RANEXA) 5-31 mg by [facility] 500 MG 12 15:24: mouth. st hr ER 57 tablet dronedarone 20180 Yes 400mg Take 400 [place] (MULTAQ) 5-31 mg by [facility] 400 mg 15:24: mouth. st tablet 57 mesalamine 20180 Yes 1000mg Take 1,000 [place] (PENTASA) 5-31 mg by [facility]i 250 mg CR 15:24: mouth. st capsule 57 folic acid 2018-0 Yes 1mg QD Take 1 mg [place] (FOLVITE) 1 - by mouth Meth kendirck MG tablet 15:24: daily. st 57 vitamin B 2018-0 Yes Take by [place] complex (B 5-31 mouth. [facility] COMPLEX-VIT 15:24: st LATHAM B12 56 ORAL) lovastatin 2017-0 Yes 40mg QD Take 40 mg [place] (MEVACOR) 5-31 by mouth Method i 40 MG 15:24: nightly. st tablet 56 clopidogrel 2018- Yes 75mg QD Take 75 mg [place] (PLAVIX) 75 5-31 by mouth Meth kendrick mg tablet 15:24: daily. st 56 dronedarone 0 Yes 200mg Take 0.[address] (MULTAQ) 3-13 tablets [facility] - 400 mg 00:00: (200 mg Medical tablet 00 total) by Center mouth 2 (two) times daily with breakfast and dinner. clopidogrel Yes 75mg QD Take [address] (PLAVIX) 75 3-11 by mouth Luke s - mg tablet 15:33: daily. Medica l 58 Center nitroglycer Yes .4mg Place 0.[address] in 3-11 mg under [facility] - (NITROSTAT) 03:07: the tongue Medical 0.4 MG SL 29 every 5 Center tablet (five) minutes as needed for Chest pain Put 1 pill under tongue every 5min as needed for chest pain.No more than 3 doses in 15min.Call 911 if pain is unrelieved 5min after 1st dose . INFLIXIMAB Yes Inject [facility] t (REMICADE 4-12 intravenou Luke s - IV) 15:32: sly once Medical 43 every 8 Center weeks . apixaban Yes 2.5mg Q.5D Take 2.[address] (ELIQUIS) 5 8-28 mg by [facility] - mg Tab 00:59: mouth 2 Medical tablet 51 (two) Center times daily . cholecalcif Yes 5000U QD Take 5,[address] khushi, 8-27 Units by [facility]ukes - vitamin D3, 22:15: mouth Medic al 5,000 unit 57 daily. Center Tab ramipril Yes 10mg QD Take [address] (ALTACE) 10 3-16 by mouth Luke s - MG capsule 16:07: daily. Medic al 21 Center metoprolol 0 Yes 50mg Q.5D Take [address] (LOPRESSOR) 6-10 by mouth 2 [place] [facility] - 50 MG 20:41: (two) Medical tablet 14 times Center daily. Procedures Procedure Date / Time Performing Clinician Source Performed ECHOCARDIOGRAM REPORT - 2020-02-03 09:51:33 Provider, Default [facility] Plan of Care Planned Activity Planned Date Details Comments Source Future Scheduled 2020-06-06 INFLUENZA VACCINE [place] [facility] 00:00:00 [code = INFLUENZA VACCINE] Future Scheduled 1980 SHINGLES VACCINES [place] [facility] 00:00:00 (#1) [code = SHINGLES VACCINES (#1)] Encounters Start End Encounter Admission Attending Care Care Encounter Source Date/Time Date/Time Type Type Clinicians Facility Department ID 2019-08-30 2019-08-30 Office [place] [facility] [id number] 10:19:41 11:53:05 Visit , Kaden AMBULATOR [id number] C. Y [id number] 300 2019-07-17 2019-07-17 Office [place] [facility] [id number] 09:35:50 09:45:50 Visit , Kaden AMBULATOR [id number] C. Y [id number] 300 2019-06-10 2019-06-10 Office [place] [facility] [id number] 16:06:01 16:21:01 Visit , Kaden AMBULATOR [id number] C. Y [id number] 300 Results Test Description Test Time Test Comments Results Result Comments Source TROPONIN I 2018-09-19 09:44:00 Test Item Value Reference Range Interpretation Comme nts TROPONIN I (BEAKER) (test code = 397) 0.10 ng/mL 0.00-0.03 H BASIC METABOLIC [id number] 08:36:00 Test Item Value Reference Range Interpretation Comments SODIUM (BEAKER) 139 meq/L 136-145 (test code = 381) POTASSIUM (BEAKER) 4.6 meq/L 3.5-5.1 (test code = 379) CHLORIDE (BEAKER) 112 meq/L 98-107 H (test code = 382) CO2 (BEAKER) (test 22 meq/L 22-29 code = 355) BLOOD UREA NITROGEN 31 mg/dL 7-21 H (BEAKER) (test code = 354) CREATININE (BEAKER) 1.38 mg/dL 0.57-1.25 H (test code = 358) GLUCOSE RANDOM 87 mg/dL 70-105 (BEAKER) (test code = 652) CALCIUM (BEAKER) 9.0 mg/dL 8.4-10.2 (test code = 697) EGFR (BEAKER) (test 49 mL/min/1.73 ESTIMA BUDDY GFR IS code = 1092) sq m NOT ACCURATE CREATININE CLEARANCE IN PREDICTING GLOMERULAR FILTRATION RATE . ESTIMATED GFR I S NOT APPLICABLE FOR DIALYSIS PATIEN TS. CBC W/PLT COUNT & AUTO [id number] 08:23:00 Test Item Value Reference Range Interpretation Comments WHITE BLOOD CELL COUNT (BEAKER) 7.9 K/ L 3.5-10.5 (test code = 775) RED BLOOD CELL COUNT (BEAKER) 3.54 M/ L 4.63-6.08 L (test code = 761) HEMOGLOBIN (BEAKER) (test code = 10.7 GM/DL 13.7-17.5 L 410) HEMATOCRIT (BEAKER) (test code = 33.8 % 40.1-51.0 L 411) MEAN CORPUSCULAR VOLUME (BEAKER) 95.5 fL 79.0-92.2 H (test code = 753) MEAN CORPUSCULAR HEMOGLOBIN 30.2 pg 25.7-32.2 (BEAKER) (test code = 751) MEAN CORPUSCULAR HEMOGLOBIN CONC 31.7 GM/DL 32.3-36.5 L (BEAKER) (test code = 752) RED CELL DISTRIBUTION WIDTH 14.9 % 11.6-14.4 H (BEAKER) (test code = 412) PLATELET COUNT (BEAKER) (test 215 K/CU MM 150-450 code = 756) MEAN PLATELET VOLUME (BEAKER) 10.6 fL 9.4-12.4 (test code = 754) NUCLEATED RED BLOOD CELLS 0 /100 WBC 0-0 (BEAKER) (test code = 413) NEUTROPHILS RELATIVE PERCENT 48 % (BEAKER) (test code = 429) LYMPHOCYTES RELATIVE PERCENT 37 % (BEAKER) (test code = 430) MONOCYTES RELATIVE PERCENT 12 % (BEAKER) (test code = 431) EOSINOPHILS RELATIVE PERCENT 3 % (BEAKER) (test code = 432) BASOPHILS RELATIVE PERCENT 1 % (BEAKER) (test code = 437) NEUTROPHILS ABSOLUTE COUNT 3.80 K/ L 1.78-5.38 (BEAKER) (test code = 670) LYMPHOCYTES ABSOLUTE COUNT 2.89 K/ L 1.32-3.57 (BEAKER) (test code = 414) MONOCYTES ABSOLUTE COUNT (BEAKER) 0.91 K/ L 0.30-0.82 H (test code = 415) EOSINOPHILS ABSOLUTE COUNT 0.22 K/ L 0.04-0.54 (BEAKER) (test code = 416) BASOPHILS ABSOLUTE COUNT (BEAKER) 0.05 K/ L 0.01-0.08 (test code = 417) IMMATURE GRANULOCYTES-RELATIVE 0 % 0-1 PERCENT (BEAKER) (test code = 2801) TROPONIN [id number] 00:58:00 Test Item Value Reference Range Interpretation Comments TROPONIN I (BEAKER) (test code = 0.11 ng/mL 0.00-0.03 H 397) TROPONIN [id number] 16:56:00 Test Item Value Reference Range Interpretation Comments TROPONIN I (BEAKER) (test code = 0.13 ng/mL 0.00-0.03 H 397) RAD, CHEST, 1 VIEW, NON [id number] 14:45:00Reason for exam:->CHEST PAINShould this be performed at the bedside?->YesFINAL REPORT TECHNIQUE: Frontal chest radiograph dated 09/18/2018. CLINICAL H ISTORY: Chest pain COMPARISON STUDY: Chest radiograph dated 11/26/2017 IMPRESSION:Left-sided defibrillator and cardiac monitoring device are unchanged. Lungs are clear. No pleural effusion or pneumothorax. Cardiomediastinal silhouette is normal in size. No pulmonary edema. Midline sternotomy wires are i ntact and well aligned. Signed: Gonzalo Sineport Verified Date/Time: 09/18/2018 14:45:27Reading Location: [facility] Radiology Reading Room CREATINE KINASE (CK), TOTAL AND [id number] 14:31:00 Test Item Value Reference Range Interpretation Comments CREATINE KINASE TOTAL (BEAKER) 98 U/L 29-200 (test code = 380) CREATINE KINASE-MB (BEAKER) (test 2.3 ng/mL 0.0-6.6 code = 750) CREATINE KINASE-MB INDEX (BEAKER) 2.3 % (test code = 395) CK-MB Reference Range:<6.7 Normal6.7-10.0 Borderline>10.0 AbnormalB-TYPE NATRIURETIC FACTOR (BNP)2018-09-18 14:31:00 Test Item Value Reference Range Interpretation Comments B-TYPE NATRIURETIC PEPTIDE (BEAKER) 303 pg/mL 0-100 H (test code = 700) BASIC METABOLIC [id number] 14:24:00 Test Item Value Reference Range Interpretation Comments SODIUM (BEAKER) 137 meq/L 136-145 (test code = 381) POTASSIUM (BEAKER) 4.4 meq/L 3.5-5.1 (test code = 379) CHLORIDE (BEAKER) 108 meq/L 98-107 H (test code = 382) CO2 (BEAKER) (test 21 meq/L 22-29 L code = 355) BLOOD UREA NITROGEN 33 mg/dL 7-21 H (BEAKER) (test code = 354) CREATININE (BEAKER) 1.43 mg/dL 0.57-1.25 H (test code = 358) GLUCOSE RANDOM 138 mg/dL 70-105 H (BEAKER) (test code = 652) CALCIUM (BEAKER) 9.4 mg/dL 8.4-10.2 (test code = 697) EGFR (BEAKER) (test 47 mL/min/1.73 ESTIMA BUDDY GFR IS code = 1092) sq m NOT ACCURATE CREATININE CLEARANCE IN PREDICTING GLOMERULAR FILTRATION RATE . ESTIMATED GFR I S NOT APPLICABLE FOR DIALYSIS PATIEN TS. [id number] 14:12:00 Test Item Value Reference Range Interpretation Comments PROTIME (BEAKER) (test code = 16.4 seconds 11.7-14.7 H 759) INR (BEAKER) (test code = 370) 1.3 <=5.9 PARTIAL THROMBOPLASTIN TIME 37.9 seconds 22.5-36.0 H (BEAKER) (test code = 760) RECOMMENDED COUMADIN/WARFARIN INR THERAPY RANGESSTANDARD DOSE: 2.0 - 3.0 Includes: PROPHYLAXIS forvenous thrombosis, systemic embolization; TREATMENT for venous thrombosis and/or pulmonary embolus.HIGH RISK: Target INR is 2.5-3.5 for patients with mechanical heart valves.CBC W/PLT COUNT & AUTO DIFFERENTIAL 2018-09-18 14:05:00 Test Item Value Reference Range Interpretation Comments WHITE BLOOD CELL COUNT (BEAKER) 8.3 K/ L 3.5-10.5 (test code = 775) RED BLOOD CELL COUNT (BEAKER) 3.55 M/ L 4.63-6.08 L (test code = 761) HEMOGLOBIN (BEAKER) (test code = 10.8 GM/DL 13.7-17.5 L 410) HEMATOCRIT (BEAKER) (test code = 34.1 % 40.1-51.0 L 411) MEAN CORPUSCULAR VOLUME (BEAKER) 96.1 fL 79.0-92.2 H (test code = 753) MEAN CORPUSCULAR HEMOGLOBIN 30.4 pg 25.7-32.2 (BEAKER) (test code = 751) MEAN CORPUSCULAR HEMOGLOBIN CONC 31.7 GM/DL 32.3-36.5 L (BEAKER) (test code = 752) RED CELL DISTRIBUTION WIDTH 15.0 % 11.6-14.4 H (BEAKER) (test code = 412) PLATELET COUNT (BEAKER) (test 186 K/CU MM 150-450 code = 756) MEAN PLATELET VOLUME (BEAKER) 9.8 fL 9.4-12.4 (test code = 754) NUCLEATED RED BLOOD CELLS 0 /100 WBC 0-0 (BEAKER) (test code = 413) NEUTROPHILS RELATIVE PERCENT 55 % (BEAKER) (test code = 429) LYMPHOCYTES RELATIVE PERCENT 33 % (BEAKER) (test code = 430) MONOCYTES RELATIVE PERCENT 10 % (BEAKER) (test code = 431) EOSINOPHILS RELATIVE PERCENT 2 % (BEAKER) (test code = 432) BASOPHILS RELATIVE PERCENT 1 % (BEAKER) (test code = 437) NEUTROPHILS ABSOLUTE COUNT 4.56 K/ L 1.78-5.38 (BEAKER) (test code = 670) LYMPHOCYTES ABSOLUTE COUNT 2.77 K/ L 1.32-3.57 (BEAKER) (test code = 414) MONOCYTES ABSOLUTE COUNT (BEAKER) 0.79 K/ L 0.30-0.82 (test code = 415) EOSINOPHILS ABSOLUTE COUNT 0.14 K/ L 0.04-0.54 (BEAKER) (test code = 416) BASOPHILS ABSOLUTE COUNT (BEAKER) 0.04 K/ L 0.01-0.08 (test code = 417) IMMATURE GRANULOCYTES-RELATIVE 0 % 0-1 PERCENT (BEAKER) (test code = 2801) BASIC METABOLIC [id number] 06:39:00 Test Item Value Reference Range Interpretation Comments SODIUM (BEAKER) 138 meq/L 136-145 (test code = 381) POTASSIUM (BEAKER) 4.4 meq/L 3.5-5.1 (test code = 379) CHLORIDE (BEAKER) 115 meq/L 98-107 H (test code = 382) CO2 (BEAKER) (test 19 meq/L 22-29 L code = 355) BLOOD UREA NITROGEN 37 mg/dL 7-21 H (BEAKER) (test code = 354) CREATININE (BEAKER) 1.46 mg/dL 0.57-1.25 H (test code = 358) GLUCOSE RANDOM 93 mg/dL 70-105 (BEAKER) (test code = 652) CALCIUM (BEAKER) 8.3 mg/dL 8.4-10.2 L (test code = 697) EGFR (BEAKER) (test 46 mL/min/1.73 ESTIMA BUDDY GFR IS code = 1092) sq m NOT ACCURATE CREATININE CLEARANCE IN PREDICTING GLOMERULAR FILTRATION RATE . ESTIMATED GFR I S NOT APPLICABLE FOR DIALYSIS PATIEN TS. CBC (HEMOGRAM ONLY)2018-09-15 05:32:00 Test Item Value Reference Range Interpretation Comments WHITE BLOOD CELL COUNT (BEAKER) 8.5 K/ L 3.5-10.5 (test code = 775) RED BLOOD CELL COUNT (BEAKER) 3.29 M/ L 4.63-6.08 L (test code = 761) HEMOGLOBIN (BEAKER) (test code = 10.0 GM/DL 13.7-17.5 L 410) HEMATOCRIT (BEAKER) (test code = 31.9 % 40.1-51.0 L 411) MEAN CORPUSCULAR VOLUME (BEAKER) 97.0 fL 79.0-92.2 H (test code = 753) MEAN CORPUSCULAR HEMOGLOBIN 30.4 pg 25.7-32.2 (BEAKER) (test code = 751) MEAN CORPUSCULAR HEMOGLOBIN CONC 31.3 GM/DL 32.3-36.5 L (BEAKER) (test code = 752) RED CELL DISTRIBUTION WIDTH 15.4 % 11.6-14.4 H (BEAKER) (test code = 412) PLATELET COUNT (BEAKER) (test 200 K/CU MM 150-450 code = 756) MEAN PLATELET VOLUME (BEAKER) 10.6 fL 9.4-12.4 (test code = 754) NUCLEATED RED BLOOD CELLS 0 /100 WBC 0-0 (BEAKER) (test code = 413) BASIC METABOLIC [id number] 13:43:00 Test Item Value Reference Range Interpretation Comments SODIUM (BEAKER) 139 meq/L 136-145 (test code = 381) POTASSIUM (BEAKER) 4.2 meq/L 3.5-5.1 (test code = 379) CHLORIDE (BEAKER) 113 meq/L 98-107 H (test code = 382) CO2 (BEAKER) (test 15 meq/L 22-29 L code = 355) BLOOD UREA NITROGEN 39 mg/dL 7-21 H (BEAKER) (test code = 354) CREATININE (BEAKER) 1.48 mg/dL 0.57-1.25 H (test code = 358) GLUCOSE RANDOM 95 mg/dL 70-105 (BEAKER) (test code = 652) CALCIUM (BEAKER) 9.1 mg/dL 8.4-10.2 (test code = 697) EGFR (BEAKER) (test 45 mL/min/1.73 ESTIMA BUDDY GFR IS code = 1092) sq m NOT ACCURATE CREATININE CLEARANCE IN PREDICTING GLOMERULAR FILTRATION RATE . ESTIMATED GFR I S NOT APPLICABLE FOR DIALYSIS PATIEN TS. CBC W/PLT COUNT & AUTO [id number] 11:57:00 Test Item Value Reference Range Interpretation Comments WHITE BLOOD CELL COUNT (BEAKER) 10.6 K/ L 3.5-10.5 H (test code = 775) RED BLOOD CELL COUNT (BEAKER) 3.86 M/ L 4.63-6.08 L (test code = 761) HEMOGLOBIN (BEAKER) (test code = 12.0 GM/DL 13.7-17.5 L 410) HEMATOCRIT (BEAKER) (test code = 38.1 % 40.1-51.0 L 411) MEAN CORPUSCULAR VOLUME (BEAKER) 98.7 fL 79.0-92.2 H (test code = 753) MEAN CORPUSCULAR HEMOGLOBIN 31.1 pg 25.7-32.2 (BEAKER) (test code = 751) MEAN CORPUSCULAR HEMOGLOBIN CONC 31.5 GM/DL 32.3-36.5 L (BEAKER) (test code = 752) RED CELL DISTRIBUTION WIDTH 15.7 % 11.6-14.4 H (BEAKER) (test code = 412) PLATELET COUNT (BEAKER) (test 219 K/CU MM 150-450 code = 756) MEAN PLATELET VOLUME (BEAKER) 10.9 fL 9.4-12.4 (test code = 754) NUCLEATED RED BLOOD CELLS 0 /100 WBC 0-0 (BEAKER) (test code = 413) NEUTROPHILS RELATIVE PERCENT 44 % (BEAKER) (test code = 429) LYMPHOCYTES RELATIVE PERCENT 45 % (BEAKER) (test code = 430) MONOCYTES RELATIVE PERCENT 9 % (BEAKER) (test code = 431) EOSINOPHILS RELATIVE PERCENT 1 % (BEAKER) (test code = 432) BASOPHILS RELATIVE PERCENT 0 % (BEAKER) (test code = 437) NEUTROPHILS ABSOLUTE COUNT 4.65 K/ L 1.78-5.38 (BEAKER) (test code = 670) LYMPHOCYTES ABSOLUTE COUNT 4.77 K/ L 1.32-3.57 H (BEAKER) (test code = 414) MONOCYTES ABSOLUTE COUNT (BEAKER) 0.99 K/ L 0.30-0.82 H (test code = 415) EOSINOPHILS ABSOLUTE COUNT 0.14 K/ L 0.04-0.54 (BEAKER) (test code = 416) BASOPHILS ABSOLUTE COUNT (BEAKER) 0.04 K/ L 0.01-0.08 (test code = 417) IMMATURE GRANULOCYTES-RELATIVE 0 % 0-1 PERCENT (BEAKER) (test code = 2801) [id number] 05:22:00 Test Item Value Reference Range Interpretation Comments MAGNESIUM (BEAKER) (test code = 1.8 mg/dL 1.6-2.6 627) BASIC METABOLIC [id number] 05:22:00 Test Item Value Reference Range Interpretation Comments SODIUM (BEAKER) 136 meq/L 136-145 (test code = 381) POTASSIUM (BEAKER) 4.4 meq/L 3.5-5.1 (test code = 379) CHLORIDE (BEAKER) 108 meq/L 98-107 H (test code = 382) CO2 (BEAKER) (test 19 meq/L 22-29 L code = 355) BLOOD UREA NITROGEN 25 mg/dL 7-21 H (BEAKER) (test code = 354) CREATININE (BEAKER) 1.22 mg/dL 0.57-1.25 (test code = 358) GLUCOSE RANDOM 90 mg/dL 70-105 (BEAKER) (test code = 652) CALCIUM (BEAKER) 8.7 mg/dL 8.4-10.2 (test code = 697) EGFR (BEAKER) (test 56 mL/min/1.73 ESTIMA BUDDY GFR IS code = 1092) sq m NOT ACCURATE CREATININE CLEARANCE IN PREDICTING GLOMERULAR FILTRATION RATE . ESTIMATED GFR I S NOT APPLICABLE FOR DIALYSIS PATIEN TS. PET, CARDIAC PERFUSION MULTIPLE STUDIES, REST AND [id number] 16:24:00 Reason for exam:->chest painFINAL REPORT PROCEDURE: Rest/Stress MYOCARDIAL PERFUSION PET with regadenoson\\XA9\\ CPT CODE: 53688 INDICATION: Chest pain HISTORY: Cardiac risk factors: Age, sex, hypertension. Other cardiovascular history: Coronary artery disease status post PCI, coronary bypasssurgery x3, ICD, atrial fibrillation. Recent cardiac symptoms: Chest pain, syncope. Current cardiovascular-related medications: Amlodipine, Eliquis, Dronedarone, ramipril, Ranexa, metoprolol. PROTOCOL: Limited low-dose CT imaging was performed for attenuation correction. 40.1 mCi of Rb-82 chloridewas injected iv at rest, and gated PET (positron emission tomography) images were obtained. Subsequently, 40.0 mCi of Rb-82 chloride was injected iv at expected peak pharmacologic effect, and gated PETimages were obtained. PRELIMINARY STRESS TEST DATA FROM NONINVASIVE CARDIOLOGY: Pharmacologic stress was by 10-second iv infusion of 0.4 mg of regadenoson. Radiotracer was injected 30 seconds after start of stress. Heart rate was 74 beats/min at rest and 85 beats/min (63% of MPHR) at tracer injection. BP was 135/44 mmHg at rest and 130/42 mmHg at tracer injection. Stress was stopped for predetermined endpoint. The patient experienced headache, dyspnea; treatment was not required. Preliminary ECG evaluation revealed normal sinus rhythm with PVCs at rest and no ischemic changes with stress. (Final ECG interpretation and other stress and monitoring data are reported separately by Cardiology.) IMAGING FINDINGS: Study quality is adequate. Images obtained after stress injection show mild decrease in activity in the apical inferior LV. Resting images showed normal distribution. LV and RV volumes appear normal. Gated images obtained at rest and with stress show normal LV wall motion and thickening. LVEF at rest is 63%. LVEF at stress is 68%. IMPRESSION: 1. Abnormal study. 2. Appropriate pharmacologic stress. 3. Abnormal myocardial perfusion. There is a small, mild, reversible, inferoapical perfusion defect. 4. Normal resting LV function. No deterioration of function is noted with pharmacologic stress. 5. Normal extracardiac tracer distribution. 6. The previous study of 01/15/2012 was interpreted as normal. NONINVASIVE RISK STRATIFICATION: The above findings are considered low risk (<1% annual mortality rate) based on the following criterion:- Normal or small myocardial perfusion defect at rest or with stress(JACC. 2012;59(9):857-81.) Signed: Michelet Sanches MDReport Verified D ate/Time: 01/15/2018 16:24:50 Reading Location: [address] Reading Room BAPSYCHIATRIC METABOLIC [id number] 07:13:00 Test Item Value Reference Range Interpretation Comments SODIUM (BEAKER) 134 meq/L 136-145 L (test code = 381) POTASSIUM (BEAKER) 4.9 meq/L 3.5-5.1 (test code = 379) CHLORIDE (BEAKER) 107 meq/L 98-107 (test code = 382) CO2 (BEAKER) (test 20 meq/L 22-29 L code = 355) BLOOD UREA NITROGEN 33 mg/dL 7-21 H (BEAKER) (test code = 354) CREATININE (BEAKER) 1.24 mg/dL 0.57-1.25 (test code = 358) GLUCOSE RANDOM 100 mg/dL 70-105 (BEAKER) (test code = 652) CALCIUM (BEAKER) 8.5 mg/dL 8.4-10.2 (test code = 697) EGFR (BEAKER) (test 55 mL/min/1.73 ESTIMA BUDDY GFR IS code = 1092) sq m NOT ACCURATE CREATININE CLEARANCE IN PREDICTING GLOMERULAR FILTRATION RATE . ESTIMATED GFR I S NOT APPLICABLE FOR DIALYSIS PATIEN TS. CREATINE KINASE (CK), TOTAL AND [id number] 12:26:00 Test Item Value Reference Range Interpretation Comments CREATINE KINASE TOTAL (BEAKER) 141 U/L 29-200 (test code = 380) CREATINE KINASE-MB (BEAKER) (test 2.6 ng/mL 0.0-6.6 code = 750) CREATINE KINASE-MB INDEX (BEAKER) 1.8 % (test code = 395) CK-MB Reference Range:<6.7 Normal6.7-10.0 Borderline>10.0 AbnormalTROPONIN [id number] 12:26:00 Test Item Value Reference Range Interpretation Comments TROPONIN I (BEAKER) (test code = 0.01 ng/mL 0.00-0.03 397) Troponin I (TnI) levels must be interpreted in the context of the presenting symptoms and the clinical findings. Elevated TnI levels indicate myocardial damage, but are not specific for ischemic heart disease. Elevated TnI levels are seen in patients with other cardiac conditions (including myocarditis and congestive heart failure), and slight TnI elevations occur in patients with other conditions, including sepsis, renal failure, acidosis, acute neurological disease, and persistent tachyarrhythmia.CREATINE KINASE (CK), TOTAL AND MB 2018-01-14 04:07:00 Test Item Value Reference Range Interpretation Comments CREATINE KINASE TOTAL (BEAKER) 164 U/L 29-200 (test code = 380) CREATINE KINASE-MB (BEAKER) (test 3.2 ng/mL 0.0-6.6 code = 750) CREATINE KINASE-MB INDEX (BEAKER) 2.0 % (test code = 395) CK-MB Reference Range:<6.7 Normal6.7-10.0 Borderline>10.0 AbnormalTROPONIN [id number] 04:07:00 Test Item Value Reference Range Interpretation Comments TROPONIN I (BEAKER) (test code = 0.02 ng/mL 0.00-0.03 397) Troponin I (TnI) levels must be interpreted in the context of the presenting symptoms and the clinical findings. Elevated TnI levels indicate myocardial damage, but are not specific for ischemic heart disease. Elevated TnI levels are seen in patients with other cardiac conditions (including myocarditis and congestive heart failure), and slight TnI elevations occur in patients with other conditions, including sepsis, renal failure, acidosis, acute neurological disease, and persistent tachyarrhythmia.B-TYPE NATRIURETIC FACTOR (BNP) 2018-01-14 04:05:00 Test Item Value Reference Range Interpretation Comments B-TYPE NATRIURETIC PEPTIDE (BEAKER) 138 pg/mL 0-100 H (test code = 700) BASIC METABOLIC [id number] 04:01:00 Test Item Value Reference Range Interpretation Comments SODIUM (BEAKER) 137 meq/L 136-145 (test code = 381) POTASSIUM (BEAKER) 4.8 meq/L 3.5-5.1 (test code = 379) CHLORIDE (BEAKER) 108 meq/L 98-107 H (test code = 382) CO2 (BEAKER) (test 18 meq/L 22-29 L code = 355) BLOOD UREA NITROGEN 40 mg/dL 7-21 H (BEAKER) (test code = 354) CREATININE (BEAKER) 1.58 mg/dL 0.57-1.25 H (test code = 358) GLUCOSE RANDOM 101 mg/dL 70-105 (BEAKER) (test code = 652) CALCIUM (BEAKER) 9.0 mg/dL 8.4-10.2 (test code = 697) EGFR (BEAKER) (test 42 mL/min/1.73 ESTIMA BUDDY GFR IS code = 1092) sq m NOT ACCURATE CREATININE CLEARANCE IN PREDICTING GLOMERULAR FILTRATION RATE . ESTIMATED GFR I S NOT APPLICABLE FOR DIALYSIS PATIEN TS. CBC W/PLT COUNT & AUTO [id number] 03:34:00 Test Item Value Reference Range Interpretation Comments WHITE BLOOD CELL COUNT (BEAKER) 7.1 K/ L 3.5-10.5 (test code = 775) RED BLOOD CELL COUNT (BEAKER) 4.09 M/ L 4.63-6.08 L (test code = 761) HEMOGLOBIN (BEAKER) (test code = 11.6 GM/DL 13.7-17.5 L 410) HEMATOCRIT (BEAKER) (test code = 37.0 % 40.1-51.0 L 411) MEAN CORPUSCULAR VOLUME (BEAKER) 90.5 fL 79.0-92.2 (test code = 753) MEAN CORPUSCULAR HEMOGLOBIN 28.4 pg 25.7-32.2 (BEAKER) (test code = 751) MEAN CORPUSCULAR HEMOGLOBIN CONC 31.4 GM/DL 32.3-36.5 L (BEAKER) (test code = 752) RED CELL DISTRIBUTION WIDTH 16.3 % 11.6-14.4 H (BEAKER) (test code = 412) PLATELET COUNT (BEAKER) (test 173 K/CU MM 150-450 code = 756) MEAN PLATELET VOLUME (BEAKER) 10.7 fL 9.4-12.4 (test code = 754) NUCLEATED RED BLOOD CELLS 0 /100 WBC 0-0 (BEAKER) (test code = 413) NEUTROPHILS RELATIVE PERCENT 42 % (BEAKER) (test code = 429) LYMPHOCYTES RELATIVE PERCENT 42 % (BEAKER) (test code = 430) MONOCYTES RELATIVE PERCENT 14 % (BEAKER) (test code = 431) EOSINOPHILS RELATIVE PERCENT 2 % (BEAKER) (test code = 432) BASOPHILS RELATIVE PERCENT 0 % (BEAKER) (test code = 437) NEUTROPHILS ABSOLUTE COUNT 2.97 K/ L 1.78-5.38 (BEAKER) (test code = 670) LYMPHOCYTES ABSOLUTE COUNT 2.98 K/ L 1.32-3.57 (BEAKER) (test code = 414) MONOCYTES ABSOLUTE COUNT (BEAKER) 0.97 K/ L 0.30-0.82 H (test code = 415) EOSINOPHILS ABSOLUTE COUNT 0.12 K/ L 0.04-0.54 (BEAKER) (test code = 416) BASOPHILS ABSOLUTE COUNT (BEAKER) 0.03 K/ L 0.01-0.08 (test code = 417) IMMATURE GRANULOCYTES-RELATIVE 0 % 0-1 PERCENT (BEAKER) (test code = 2801) TISSUE [id number] 11:36:00Surgical Pathology Report Case: [id number] --- Authorizing Provider: Devante Raymundo MD Ordering Provider: Devante Raymundo MD [facility] Endoscopy Collected: 02/20/2017 1315 Services Pathologist: Lizbeth Montemayor, Received: 02/20/2017 1632 MD Specimen: Biopsy, Terminal Ileum, ULCER/BX/FORCEP This report is issued To give the results of immunohistochemical studies for CMV AND HSV:TERMINAL ILEUM, ULCER, ENDOSCOPIC BIOPSY: - COLONIC TYPE MUCOSA WITH ULCER AND GRANULATION TISSUE - MILD ARCHITECTURAL DISTORTION IN AD JACENT MUCOSA - NO VIRAL INCLUSIONS, GRANULOMAS, DYSPLASIA OR MALIGNANCY SEEN - IMMUNOHISTOCHEMICAL STUDIES FOR CMV, HSV I AND II ARE NEGATIVE Signing Pathologist Direct Phone Line: [phone]; [phone]; 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 CG/ewPERFORMEDThe following special studies were performed on this case and the interpretation is incorporated in the diagnostic report above:The imm unohistochemistry test was developed and its performance characteristics determined by [facility], Pathology Laboratory. It has not been cleared or approved by the U.S. Food and Drug Administration. The FDA has determined that such clearance or approval is not necessary. The test is used for clinical purposes. It should not be regarded as investigational or for research. This laboratory is certified under the Clinical Laboratory Improvement Amendments of 1988 (CLIA-88) as qualifiedto perform high complexity clinical laboratory testing.CMV; HSV
== END 2020-08-08 16:06 | disposition home or self-care (01) ==
LOC: ER 13:56
PROC: 0JQ00ZZ Repair Scalp Subcutaneous Tissue and Fascia, Open Approach (ICD-10-PCS; principal; 2020-08-08)
DX: S01.01XA Laceration without foreign body of scalp, initial encounter (principal); W19.XXXA Unspecified fall, initial encounter; Y93.01 Activity, walking, marching and hiking; Y92.89 Other specified places as the place of occurrence of the external cause; I10 Essential (primary) hypertension; I48.91 Unspecified atrial fibrillation; Z79.01 Long term (current) use of anticoagulants; Z88.1 Allergy status to other antibiotic agents; Z88.8 Allergy status to other drugs, medicaments and biological substances
CPT/HCPCS: 70450; 72125; 99284